=== PATIENT | female | born 1940 | race Two or more races ===

== ENCOUNTER 2017-10-25 10:46 | Outpatient (CLI) | payer OTHER ==
[~2017-10-25 10:46] MED LIST: AFRIN SPRAY15 ML NS; AZOR 10/20 MG T1 TAB; CIPRO500 MG PO; CIPROFLOXACIN750 MG PO; FOSAMAX10 MG; MUCINEX DM TABL1 BOX PO; MUCINEX600 MG PO; NASONEX17 GM NS; SYNTHROID125 MCG
== END 2017-10-25 17:00 | disposition home or self-care (01) ==
LOC: TOM 10:46
DX: C82.01 Follicular lymphoma grade I, lymph nodes of head, face, and neck (principal)

== ENCOUNTER 2017-10-25 11:04 | Outpatient (CLI) | payer OTHER | END 2017-10-25 11:08 | disposition home or self-care (01) | LOC: LAB 11:04 | DX: C82.01 Follicular lymphoma grade I, lymph nodes of head, face, and neck (principal) ==

== ENCOUNTER → 2018-09-23 | Outpatient (CLI) | payer OTHER | END | disposition home or self-care (01) | LOC: TOM 09:46 | DX: C82.01 Follicular lymphoma grade I, lymph nodes of head, face, and neck (principal) ==

== ENCOUNTER 2022-02-12 10:29 | Outpatient (CLI) | payer OTHER | END 2022-02-12 10:31 | disposition home or self-care (01) | LOC: NUCLEAR 10:29 | PROVIDERS: ATTEND Internal Medicine | DX: M81.0 Age-related osteoporosis without current pathological fracture (principal); Z13.820 Encounter for screening for osteoporosis; I10 Essential (primary) hypertension; M54.59 Other low back pain; Z01.810 Encounter for preprocedural cardiovascular examination; C85.90 Non-Hodgkin lymphoma, unspecified, unspecified site ==

== ENCOUNTER 2022-06-22 10:23 | Outpatient (CLI) | payer OTHER | END 2022-06-22 10:33 | disposition home or self-care (01) | LOC: LAB 10:23 | PROVIDERS: ATTEND Orthopaedic Surgery | DX: Z01.810 Encounter for preprocedural cardiovascular examination (principal); Z96.643 Presence of artificial hip joint, bilateral; M54.50 Low back pain, unspecified; E55.9 Vitamin D deficiency, unspecified; M85.9 Disorder of bone density and structure, unspecified; E56.1 Deficiency of vitamin K; E21.3 Hyperparathyroidism, unspecified; E88.9 Metabolic disorder, unspecified; M81.8 Other osteoporosis without current pathological fracture; I10 Essential (primary) hypertension; C85.90 Non-Hodgkin lymphoma, unspecified, unspecified site; C91.11 Chronic lymphocytic leukemia of B-cell type in remission; R59.0 Localized enlarged lymph nodes; M81.0 Age-related osteoporosis without current pathological fracture; Z13.820 Encounter for screening for osteoporosis ==

== ENCOUNTER 2023-03-11 21:21 | Emergency (ER) | payer OTHER ==
[~2023-03-11] VITALS: Ht 167.6 cm; Wt 92.5 kg
[2023-03-12] MEDS ORDERED: CEPHALEXIN500 MG PO (01:34)
== END 2023-03-12 01:42 ==
LOC: ER 21:21
DX: S01.82XA Laceration with foreign body of other part of head, initial encounter (principal); W18.39XA Other fall on same level, initial encounter; Y93.89 Activity, other specified; Y92.018 Other place in single-family (private) house as the place of occurrence of the external cause; M50.322 Other cervical disc degeneration at C5-C6 level
CPT/HCPCS: 12014; 36415; 70450; 72040; 93005; 99284; J3411; J7070

== ENCOUNTER → 2023-03-22 | Emergency (ER) | payer OTHER ==
[~2023-03-22] VITALS: Ht 167.6 cm; Wt 89.4 kg
[~2023-03-22] MED LIST changes: +CEPHALEXIN500 MG PO
== END | disposition home or self-care (01) ==
LOC: ER 08:20
DX: Z48.02 Encounter for removal of sutures (principal)

== ENCOUNTER 2023-10-27 10:36 | Inpatient (IN) | payer OTHER ==
[~2023-10-27] VITALS: Ht 167.6 cm; Wt 81.6 kg
[2023-10-27] MEDS ORDERED: HYDROCHLOROTH12.5 MG (11:22)
[2023-10-27] MEDS ORDERED: CHILDREN'S ASPI81 MG PO (11:22)
[2023-10-27] MEDS ORDERED: MOBIC7.5 MG PO (11:23)
[2023-10-27] MEDS ORDERED: IBANDRONATE SO150 MG PO (11:24)
[2023-10-27] MEDS ORDERED: PEPCID AC20 MG PO (11:25)
--- NOTE | 2023-10-27 11:29 | NUR ---
PACIENTE ALERTA Y ORIENTADA X3 REFIERE QUE LLEVA DOS MESES CON TREMBLORES EN EL CUERPO. PACIENTE VERBALIZA QUE TIENE DION CON NEUROLOGO EN FRANSISCA. NO PRESENTA NINGUN OTRO SINTOMAS. SE LE [place] S/V Y SE UBICA.
[2023-10-27 14:00] LABS: HEMATOCRIT 30.9 % (36.0-45.00); HEMOGLOBIN 10.5 g/dL (12.0-15.00); MEAN CELL VOLUME 104.1 fL (80.00-100.00); MEAN CORPUSCULAR HEMOGLOBIN 35.4 pg (27.00-32.0); PLATELET COUNT 184 K/uL (150-450); RED BLOOD COUNT 2.97 M/uL (4.00-6.00); RED CELL DISTRIBUTION WIDTH 16.1 % (11.5-14.5)
[2023-10-27 14:34] LABS: CALCIUM 8.1 mg/dL (8.5-10.1); CREATININE SERUM 2.26 mg/dL (0.55-1.02); GFR 20.72
--- NOTE | 2023-10-27 14:44 | NUR ---
PACIENTE ALERTA Y ORIENTADA X3, EVALUADA POR EL DR. PICKETT. SE EDUCA SOBRE PROCEDIMIENTO, VERBALIZA ENTENDER. SE EJECUTAN ORDENES BAJO MEDIDAS ASEPTICAS.
[2023-10-27 14:52] LABS: POTASSIUM 2.79 mEq/L (3.5-5.1)
[2023-10-27] MEDS ORDERED: POTASSIUM CHLORIDE/D5-0.9%NACL 40 MEQ/1,000 ML PIGGYBAG IV STA (14:54)
[2023-10-27] MEDS ORDERED: POTASSIUM CHLORIDE 10 MEQ CAPSULE PO STA (14:54)
[2023-10-27] MEDS ORDERED: 0.9 % SODIUM CHLORIDE 1,000 ML IV SCH (20:00)
[2023-10-27] MEDS ORDERED: POTASSIUM CHLORIDE/NACL 0.9% 1,000 ML IV ONE (20:15)
[2023-10-27] MEDS ORDERED: ACETAMINOPHEN 500 MG GEL..CAP PO PRN (20:15)
[2023-10-27 22:15] LABS: INR 1.05
[2023-10-27 22:18] LABS: PARTIAL THROMBOPLASTIN TIME < 20.0 SECONDS (22.0-34.0)
[2023-10-27 22:26] LABS: PHOSPHOROUS 3.2 mg/dL (2.5-4.9)
[2023-10-27 22:53] LABS: MAGNESIUM 1.3 mg/dL (1.8-2.4)
[2023-10-27] MEDS ORDERED: MAGNESIUM SULFATE 1,000 MG in 0.9 % SODIUM CHLORIDE 50 ML IV ONE (23:30)
[2023-10-28] MEDS ORDERED: MAGNESIUM SULFATE 50% 1,000 MG/2 ML VIAL ONE (00:18)
[2023-10-28] MEDS ORDERED: LEVOTHYROXINE SODIUM 125 MCG TABLET PO SCH (06:00)
[2023-10-28] MEDS ORDERED: hydrALAZINE HCL 20 MG VIAL IV PRN (07:30)
[2023-10-28] MEDS ORDERED: FAMOTIDINE/PF 20 MG in 0.9 % SODIUM CHLORIDE 8 ML IV PUSH SCH (09:00)
[2023-10-28] MEDS ORDERED: HYDROCHLOROTHIAZIDE 12.5 MG CAPSULE PO SCH (09:00)
[2023-10-28] MEDS ORDERED: VITAMIN B COMPLEX/LYSINE 1 ML ML PO SCH (09:00)
[2023-10-28] MEDS ORDERED: POTASSIUM BICARBONATE/CIT AC 25 MEQ TABLET.EFF PO SCH (09:00)
[2023-10-28] MEDS ORDERED: PROPRANOLOL HCL 10 MG TABLET PO SCH (09:00)
[2023-10-28 16:16] LABS: PH,URINE 7.5 (5.0-8.0); URINE APPEARANCE Cloudy; URINE BILIRRUBIN Negative (NEGATIVE); URINE BLOOD Negative; URINE COLOR Yellow; URINE LEUKOCYTE Negative; URINE NITRATE Negative
[2023-10-28 16:19] LABS: URINE BACTERIA 220.4 uL (0.0-1933); URINE EPITHELIAL CELLS 11.4 uL (0.0-38.8); URINE RBC 2.4 uL (0.0-20.8); URINE WBC 8.3 uL (0.0-23.2)
[2023-10-28 17:05] LABS: URINE GLUCOSE 250 MG/DL (NEGATIVE); URINE PROTEIN 100 (NEGATIVE)
[2023-10-29 06:34] LABS: HEMATOCRIT 23.7 % (36.0-45.00); MEAN CORPUSCULAR HGB CONC 34.9 g/dl (32.0-36.0); PLATELET COUNT 154 K/uL (150-450); RED BLOOD COUNT 2.26 M/uL (4.00-6.00); RED CELL DISTRIBUTION WIDTH 15.9 % (11.5-14.5)
[2023-10-29 07:10] LABS: ALBUMIN 2.3 gm/dL (3.4-5.0); BILIRUBIN TOTAL 0.75 mg/dL (0.3-1.2); CREATININE SERUM 2.05 mg/dL (0.55-1.02); GFR 23.18; GLOBULINA 2.5 G/DL (2.4-3.5); POTASSIUM 3.79 mEq/L (3.5-5.1); TOTAL PROTEIN 4.8 gm/dL (6.4-8.2)
[2023-10-29 07:11] LABS: MAGNESIUM 1.4 mg/dL (1.8-2.4)
[2023-10-29 08:30] LABS: HEMOGLOBIN 8.3 g/dL (12.0-15.00); MEAN CELL VOLUME 104.8 fL (80.00-100.00); MEAN CORPUSCULAR HEMOGLOBIN 36.7 pg (27.00-32.0)
[2023-10-29] MEDS ORDERED: SODIUM CHLORIDE 0.45 % 1,000 ML IV SCH (14:00)
[2023-10-29] MEDS ORDERED: MAGNESIUM SULFATE IN WATER 2 GM/50 ML PIGGYBAG IV ONE (14:00)
[2023-10-30 07:46] LABS: HEMATOCRIT 24.3 % (36.0-45.00); MEAN CELL VOLUME 103.2 fL (80.00-100.00); MEAN CORPUSCULAR HGB CONC 34.7 g/dl (32.0-36.0); PLATELET COUNT 157 K/uL (150-450); RED BLOOD COUNT 2.35 M/uL (4.00-6.00); RED CELL DISTRIBUTION WIDTH 15.9 % (11.5-14.5)
[2023-10-30 08:42] LABS: ALBUMIN 2.3 gm/dL (3.4-5.0); CALCIUM 7.6 mg/dL (8.5-10.1); CREATININE SERUM 1.77 mg/dL (0.55-1.02); GFR 27.46; MAGNESIUM 1.7 mg/dL (1.8-2.4); PHOSPHOROUS 2.6 mg/dL (2.5-4.9); POTASSIUM 3.7 mEq/L (3.5-5.1)
[2023-10-30] MEDS ORDERED: ATORVASTATIN CALCIUM 40 MG TABLET PO SCH (09:00)
[2023-10-30 09:02] LABS: MEAN CORPUSCULAR HEMOGLOBIN 35.7 pg (27.00-32.0)
[2023-10-30 09:03] LABS: HEMOGLOBIN 8.4 g/dL (12.0-15.00)
[2023-10-30] MEDS ORDERED: PROPRANOLOL HCL10 MG PO (11:46)
[2023-10-31] MEDS ORDERED: FAMOTIDINE/PF 20 MG/2 ML VIAL ONE (23:59)
== END 2023-10-30 13:23 | disposition home or self-care (01) | DRG 684 ==
LOC: ER 10:37 → MEDI 21:01
PROVIDERS: General Practice; Internal Medicine Nephrology; ADMIT Internal Medicine; ATTEND Internal Medicine
PROC: BW28ZZZ Computerized Tomography (CT Scan) of Head (ICD-10-PCS; principal; 2023-10-27)
DX: N17.9 Acute kidney failure, unspecified (principal); E87.8 Other disorders of electrolyte and fluid balance, not elsewhere classified; G25.0 Essential tremor; I10 Essential (primary) hypertension